=== PATIENT | male | born 1950 | race Caucasian/White ===

== ENCOUNTER → 2020-02-26 | Outpatient (CLI) | payer MEDICARE ==
--- NOTE | 2020-02-26 08:47 | US ---
EXAMINATION TYPE: US kidneys/renal and bladder DATE OF EXAM: 02/26/2020 COMPARISON: NONE CLINICAL HISTORY: CKD Stage 3 N18.3. CKD EXAM MEASUREMENTS: Right Kidney: 8.8 x 5.5 x 3.7 cm Left Kidney: 10.5 x 5.2 x 5.2 cm Right Kidney: Cystic area upper pole 2.9 x 2.9 x 3.0cm Left Kidney: Parapelvic cystic areas lower pole Bladder: Anechoic Bilateral Jets seen: Yes There is no evidence for hydronephrosis at this point in time. No nephrolithiasis is seen. The urina ry bladder is anechoic. Bilateral ureteral jets are seen. IMPRESSION: Renal cystic changes noted.
== END | disposition home or self-care (01) ==
LOC: RADUSWWP 07:59
PROVIDERS: ATTEND Nurse Practitioner Family
DX: N28.1 Cyst of kidney, acquired (principal); N18.3 Chronic kidney disease, stage 3 (moderate)
CPT/HCPCS: 76770

== ENCOUNTER → 2021-05-08 | Day surgery (SDC) | payer MEDICARE ==
[2021-05-06 08:41] VITALS: BMI 27.0
[~2021-05-08] MED LIST: LACTATED RINGERS 1,000 ML IV SCH; LIDOCAINE 1% (10MG/ML) FOR IV START INTRADERMA PRN; LIDOCAINE 1% INJ 10MG/ML (20 ML MDV) ONE; PROPOFOL 10 MG/ML 20 ML VIAL IV ONE
[2021-05-08 08:13] VITALS: TEMP 97.8
--- NOTE | 2021-05-08 09:52 | P.PCN ---
Date of Procedure: 05/08/21 Procedure(s) Performed: BRIEF HISTORY: Patient is a 70-year-old pleasant white male scheduled for an elective colonoscopy as a part of value should prior history of colon polyps. PROCEDURE PERFORMED: Colonoscopy with biopsy. PREOPERATIVE DIAGNOSIS: History of Colon polyps. IV sedation per Anesthesia. PROCEDURE: After informed consent was obtained, the patient, was brought into the endoscopy unit. IV sedation was administered by Anesthesia under continuous monitoring. Digital rectal examination was normal. Initially the Olympus CF-160 flexible video colonoscope was then inserted in the rectum, gradually advanced into the cecum without any difficulty. Careful examination was performed as the scope was gradually being withdrawn. Ileocecal valve and the appendiceal orifice were visualized and appeared normal. Prep was excellent. Mucosa of the cecum, ascending colon, transverse colon, descending colon, sigmoid colon, and rectum appeared normal. In the rectum there was a 3 mm polyp that was removed by cold biopsy. Retroflexion was performed in the rectum and no lesions were seen. The patient tolerated the procedure well. IMPRESSION: 3 mm rectal polyp status post cold biopsy Rest of the colon appeared normal RECOMMENDATIONS: Findings of this examination were discussed with the patient as well as his family. He was advised to follow with the biopsy results. If the biopsy shows adenoma he can have a repeat colonoscopy in 5 years.
[2021-05-08 09:55] VITALS: RESP 17
[2021-05-08 10:03] VITALS: BP 127/79; PULSE 58
== END ==
LOC: ORWHC2ENDO 07:37
PROVIDERS: ATTEND Internal Medicine Gastroenterology
DX: K62.1 Rectal polyp (principal); Z86.010 Personal history of colon polyps; I10 Essential (primary) hypertension; E78.5 Hyperlipidemia, unspecified; N28.9 Disorder of kidney and ureter, unspecified
CPT/HCPCS: 45380; 88305; J2001; J2704

== ENCOUNTER → 2023-05-12 | Outpatient (CLI) | payer MEDICARE ==
--- NOTE | 2023-05-12 12:43 | US ---
EXAMINATION TYPE: US kidneys/renal and bladder DATE OF EXAM: 05/12/2023 COMPARISON: Renal ultrasound 02/26/2020, 03/30/2016 CLINICAL INDICATION: Male, 72 years old with history of N18.2 CKD; CKD EXAM MEASUREMENTS: Right Kidney: 11.3 x 5.8 x 4.6 cm Left Kidney: 10.9 x 5.3 x 5.5 cm Post Void Residual Volume: 77 mL Right Kidney: Superior pole cystic area measuring 3.8 x 3.5 x 3.9 cm; mild hydronephrosis Left Kidney: Multiple cystic areas lower pole Bladder: Some post void residual Bilateral Jets seen: yes No nephrolithiasis is seen. No masses are identified. Mild right hydronephrosis. Cortical medullar y differentiation is maintained. Bilateral renal simple cysts. The urinary bladder is anechoic. Bila teral ureteral jets are seen. IMPRESSION: 1. Mild right hydronephrosis. 2. Bilateral simple renal cysts.
== END | disposition home or self-care (01) ==
LOC: RADUSWWP 12:08
PROVIDERS: ATTEND Internal Medicine Nephrology
DX: N18.2 Chronic kidney disease, stage 2 (mild) (principal); N13.30 Unspecified hydronephrosis; N28.1 Cyst of kidney, acquired
CPT/HCPCS: 76770

== ENCOUNTER → 2023-08-15 | Outpatient (CLI) | payer MEDICARE ==
--- NOTE | 2023-08-15 18:33 | CT ---
EXAMINATION TYPE: CT right knee - LEYLA Protocol CT DLP: 871 mGycm, Automated exposure control for dose reduction was used. DATE OF EXAM: 08/15/2023 4:22 PM COMPARISON: . Extremity radiograph same day. CLINICAL INDICATION:Male, 72 years old with history of [id number] PAIN IN RIGHT KNEE; PHH, Presurgical pl anning TECHNIQUE: Axial images were obtained of the CT right knee - LEYLA Protocol, Additional coronal and sa gittal reformatted images and soft tissue and bone window were obtained for review. . Contrast used: mL of , (None if empty) Oral contrast used: (None if empty) FINDINGS: The visualized portion of the hips demonstrate mild osteoarthrosis changes with osteophyte formation of the acetabulum. No acute intrapelvic process. The bony structures of the pelvis are inta ct. The visualized knee demonstrates osteophyte formation of the tibial plateau the patella and femoral c ondyles. There is joint space narrowing and subchondral sclerosis. No evidence of fracture. Visualized ankle demonstrates multifocal osteoarthrosis changes with osteophyte formation and severe joint space narrowing. Subchondral sclerosis involving the medial tibial plateau and femoral condyle. Posterior joint body which is calcified measuring up to 7 mm. No evidence of fractures. Moderate jennifer nt effusion. Colonic diverticulosis with bilateral fat-containing inguinal hernias. IMPRESSION: Moderate to severe osteoarthrosis changes of the right knee.
== END | disposition home or self-care (01) ==
LOC: RADCTMAIN 15:47
PROVIDERS: ATTEND Orthopaedic Surgery
DX: Z01.818 Encounter for other preprocedural examination (principal); M17.11 Unilateral primary osteoarthritis, right knee; N18.9 Chronic kidney disease, unspecified

== ENCOUNTER → 2024-11-27 | Outpatient (CLI) | payer MEDICARE ==
--- NOTE | 2024-11-27 10:20 | CT ---
EXAMINATION TYPE: CT abdomen pelvis wo con DATE OF EXAM: 11/27/2024 9:58 AM COMPARISON: None. CLINICAL INDICATION: Male, 74 years old with history of N13.30 UNSPECIFIED HYDRONEPHROSIS, Bilateral hydronephrosis TECHNIQUE: Axial images with sagittal coronal reformats. Examination of the solid and hollow viscera is limited given the lack of contrast. CT DLP: 708.70 mGycm, Automated exposure control for dose reduction was used. FINDINGS: LUNG BASES: No evidence for nodule. No evidence for infiltrate. LIVER/GB: The gallbladder is unremarkable. No space-occupying hepatic lesion. PANCREAS: No pancreatic mass identified. No inflammatory process seen. SPLEEN: No evidence for splenomegaly. No intrasplenic lesions seen. ADRENALS: No adrenal nodules identified. No evidence for thickening. KIDNEYS: 3.9 cm renal cortical cyst midpole right kidney measuring 3.9 cm. No nephrolithiasis. Appare nt fullness of the renal collecting systems could reflect hydronephrosis versus parapelvic cysts. Con trast study would be of value. No obstructing calculus is appreciated with certainty. Urinary bladder is incompletely distended. BOWEL: Appendix has a normal appearance. No evidence of bowel obstruction. No inflammatory process. M oderate changes of sigmoid diverticulosis without diverticulitis. Supraumbilical ventral hernia which contains a short segment of bowel. Recommend examination with GI contrast for further characterizati on. Lymph nodes: No evidence for adenopathy greater than 1 cm. Abdominal aorta: Atheromatous changes seen. No evidence for aneurysm. Genital organs: No significant abnormality. Other: Hazy attenuation within the small bowel could reflect mesenteric panniculitis however lymphoma is certainly not excluded although I do not see evidence for adenopathy greater than 1 cm throughout the abdomen or retroperitoneum. Fat containing inguinal hernias noted small in size bilaterally. IMPRESSION: 1.Apparent fullness of the renal collecting systems could reflect hydronephrosis versus parapelvic cy sts. Contrast study would be of value. 2.Hazy attenuation within the small bowel could reflect mesenteric panniculitis however lymphoma is c ertainly not excluded although I do not see evidence for adenopathy greater than 1 cm throughout the abdomen or retroperitoneum. 3.Supraumbilical ventral hernia which contains a short segment of bowel. Recommend examination with G I contrast for further characterization. [facility], , 11/27/2024 10:17 AM
== END | disposition home or self-care (01) ==
LOC: RADCTMAIN 09:40
PROVIDERS: ATTEND Urology
DX: N13.30 Unspecified hydronephrosis (principal); K43.9 Ventral hernia without obstruction or gangrene; K40.20 Bilateral inguinal hernia, without obstruction or gangrene, not specified as recurrent
CPT/HCPCS: 74176